=== PATIENT | female | born 1955 | race Caucasian/White ===

== ENCOUNTER 2016-09-26 11:16 | Emergency (ER) | payer SELFPAY ==
[2016-09-26 11:58] LABS: BASOPHIL % 0.5 % (0-2); PLATELET COUNT 237 x10^3mcL (130-400); RED CELL DISTRIBUTION WIDTH 13.8 % (11.5-14.5)
[2016-09-26 12:05] LABS: CALCIUM 8.9 mg/dL (8.5-10.1); CARBON DIOXIDE 31.2 mmol/L (21-32); CREATININE SERUM 1.1 mg/dL (0.6-1.0); POTASSIUM SERUM 4.5 mmol/L (3.5-5.1)
[2016-09-26 13:19] VITALS: BP 183/89
== END 2016-09-26 13:19 | disposition home or self-care (01) ==
LOC: ED 11:16
PROVIDERS: Emergency Medicine
DX: I16.0 Hypertensive urgency (principal); E11.649 Type 2 diabetes mellitus with hypoglycemia without coma; Z79.4 Long term (current) use of insulin; I10 Essential (primary) hypertension
CPT/HCPCS: 36415; 82962

== ENCOUNTER 2018-07-12 09:54 | Inpatient (IN) | payer OTHER ==
[~2018-07-12] VITALS: Ht 162.6 cm; Wt 67.8 kg
[2018-07-12 10:01] VITALS: Ht 162.6 cm; Wt 67.8 kg
--- NOTE | 2018-07-12 10:05 | NUR ---
PATIENT BIB [facility]- ALOC. PATIENT WAS FOUND AT THE FACILITY SHE RESIDES AT WITH LOW BS. UPON TRANSPORT TO HOSPITAL, MEDIC STATES HE BS WAS 96- MEDIC STATES PATIENT HAD INCOMPRENSIBLE SPEECH. UPON ARRIVAL, BS WAS CHECKED AGAIN AND WAS FOUND TO BE AT 145. RECTAL TEMP WAS LOW 96.7. PATIENT STILL ALTERED UPON ARRIVAL BUT RESPONDS TO TOUCH AND WILL STATE NAME AND WHERE SHE IS AT. BREATHING IS EVEN AND UNLABORED, NO OTHER S/S OF DISTRESS NOTED. PLACED ON ALL MONITORS FOR FURTHER EVALUATION.
--- NOTE | 2018-07-12 10:07 | NUR ---
PATIENT BIB [facility] WITH ALOC. BS AT FACILITY WAS LOW AND DURING TRANSPORT BS WAS CHECKED AGAIN AND WAS FOUND TO BE AT 96. PATIENT AWAKENS TO NAME ONLY-AND IS ORIENTED TO PLACE. BREATHING IS EVEN AND UNLABORED. BODY TEMP IS LOW 96.7 RECTALLY, BS 145, AROUSABLE TO VOICE AND TOUCH AND OBEYS COMMANDS WHEN
--- NOTE | 2018-07-12 10:15 | NUR ---
PATIENT TAKEN FOR CT SCAN- WILL MONITOR UPON RETURN.
[2018-07-12 10:16] LABS: BASOPHIL % 0.7 % (0-2); PLATELET COUNT 368 x10^3mcL (130-400); RED CELL DISTRIBUTION WIDTH 16.5 % (11.5-14.5)
[2018-07-12] MEDS ORDERED: NOR10 PO (10:47)
[2018-07-12] MEDS ORDERED: ATORVASTATIN CA40 M1 PO (10:49)
[2018-07-12] MEDS ORDERED: CLOPIDOGREL75 M1 PO (10:49)
[2018-07-12 10:50] LABS: CALCIUM 8.7 mg/dL (8.5-10.1); CARBON DIOXIDE 31.3 mmol/L (21-32); CHLORIDE SERUM 97 mmol/L (98-107); CREATININE SERUM 3.2 mg/dL (0.6-1.0); GFR1 16 mL/min; GLUCOSE SERUM 161 mg/dL (74-106); POTASSIUM SERUM 3.4 mmol/L (3.5-5.1); SODIUM SERUM 135 mmol/L (136-145)
[2018-07-12] MEDS ORDERED: LOSARTAN POTASS50 M1 PO (10:50)
[2018-07-12] MEDS ORDERED: GABAPENTIN100 M2 PO (10:51)
[2018-07-12] MEDS ORDERED: MIRTAZAPINE15 M2 PO (10:51)
[2018-07-12] MEDS ORDERED: ALBUTEROL0.63 MG/3 NEB (10:53)
[2018-07-12] MEDS ORDERED: LASIX40 MG PO (10:55)
[2018-07-12] MEDS ORDERED: LANTI SQ (10:55)
[2018-07-12 10:57] LABS: ALKALINE PHOSPHATASE 208 U/L (46-116); ALT/SGPT 42 U/L (14-59); AST/SGOT 27 U/L (15-37); BILIRUBIN TOTAL 0.3 mg/dL (0.20-1.00)
[2018-07-12] MEDS ORDERED: DULCOLAX10 M1 RC (10:58)
[2018-07-12 11:00] LABS: ALBUMIN 2.9 g/dL (3.4-5.0)
[2018-07-12] MEDS ORDERED: GOOD NEIGH1200 MG/15 PO (11:00)
[2018-07-12] MEDS ORDERED: FLEET ENEMA135 ML RC (11:00)
[2018-07-12] MEDS ORDERED: CLONIDINE HCL0.1 MG PO (11:01)
[2018-07-12] MEDS ORDERED: TYLENOL325 M1 PO (11:02)
--- NOTE | 2018-07-12 11:15 | NUR ---
PATIENT PLACED IN A BEAR HUGGER TO WARM BODY TEMPERATURE UP. PATIENT TOLERATING WELL. BREATHING EVEN AND UNLABORED. NO S/S OF DISTRESS NOTED.
--- NOTE | 2018-07-12 11:42 | NUR ---
PATIENT GOES TO DIALYSIS M/W/F
--- NOTE | 2018-07-12 12:56 | NUR ---
PT RESTING AT BEDSIDE IN NAD. BREATHING E/U, BILATERAL CHEST RISE. BED AT LOWEST POSITION. CALL LIGHT IN REACH. AT BEDSIDE
--- NOTE | 2018-07-12 13:26 | NUR ---
PT RESTING AT BEDSIDE IN NAD. BREATHING E/U, BILATERAL CHEST RISE. BED AT LOWEST POSITION.
--- NOTE | 2018-07-12 13:34 | NUR ---
GAVE REPORT TO NAZIA BARBOZA- SVEN FOR FURTHER CARE OF PATIENT.
--- NOTE | 2018-07-12 13:56 | NUR ---
RECEIVED PATIENT FROM ED VIA [facility] ACCOMPANIED BY ER NURSE AND TRANSPORTER. PT A/0 X2, TRANSFERED PATIENT FROM [facility] TO BED AND MADE COMFORTABLE. APPLIED TELE #16, DENIES CHEST PAIN. EXTERIOR HEART MONITOR NOTED TO LEFT UPPER CHEST AND YADI CATH NOTED TO RIGHT UPPER CHEST, DRESSING CDI. IV TO RAC INTACT AND PATENT FREE FROM REDNESS AND INFILTRATION. PATIENT HAS BEAR HUGGER IN PLACE, RECTAL TEMP 96.5, WILL CONTINUE TO MONITOR. PATIENT ORIENTED TO ROOM. INSTRUCTED TO CALL FOR ASSISTANCE IF NEEDED. SAFETY PRECAUTIONS IN PLACE. WILL MONITOR.
--- NOTE | 2018-07-12 14:31 | NUR ---
RECEIVED PT VIA [facility] FROM E/D, ACCOMPANIED BY RN AND TRANSPORTER. PT A/A/O X 2 (PERSON, PLACE), SLOW SPEECH, SLOW TO RESPOND. ON TELE # 16, NSR, HR 79, DENIES CHEST PAIN OR DISCOMFORT AT THIS TIME, EXTERIOR HEART MONITOR TO LEFT UPPER CHEST. BUL/BLL CLEAR, CHEST RISING EVENLY, R/A, 98%, NO ACUTE RESPIRATORY DISTRESS NOTED. PT REPORTS POOR APPETITE. VOIDS FREELY, HAS ESTEE FISTULA +THRILL/BRUIT, YADI CATH TO RIGHT UPPER CHEST, DRESSING CDI. GENERALIZED WEAKNESS, USES WALKER AT HOME, HAD MULTIPLE FALLS IN THE LAST 3 MONTHS, FALL RISK PROTOCOL IN PLACE. BEAR HUGGER IN PLACE 2/2 HYPOTHERMIA. IV SITE RAC 20G, CDI. ORIENTED PT TO ROOM, BED CONTROLS, CALL LIGHT SYSTEM. SIDE RAILS UP X 2, BED IN LOW POSITION. WILL ENDORSE TO NAZIA BARBOZA.
[2018-07-12 14:55] VITALS: BP 161/66
--- NOTE | 2018-07-12 17:00 | NUR ---
RECTAL TEMP 99.5, COBY POLO PAUSED AT THIS TIME, WILL CONTINUE TO MONITOR RECTAL TEMP. ASSISTED PATIENT UP OUT OF BED TO USE RESTROOM. PATIENT VOIDED AND HAD X1 BM, RECTAL THERMOMETER ACCIDENTLY CAME OUT, PLACED NEW RECTAL THERMOMETER, PATIENT TOLERATED WELL. RECTAL TEMP 99.0, PATIENT RESTING COMFORTABLY IN BED, SAFETY PRECAUTIONS MAINTAINED WILL CONTINUE TO MONITOR.
[2018-07-12 17:29] VITALS: BP 161/67
--- NOTE | 2018-07-12 18:40 | NUR ---
PATIENT RESTING IN BED COMFORTABLY WITH EYES CLOSED, BREATHING EVEN UNLABBORED, NO DISTRESS NOTED. DAUGHTER VERONICA AT BEDSIDE. RECTAL TEMP 98.9, WILL MONITOR AND REMOVE COBY HUGGER IF TEMP REMAINS WNL PER [facility] COORDINATOR. SAFETY PRECAUTIONS MAINTAINED. WILL ENDORSE CARE TO ONCOMING NURSE.
--- NOTE | 2018-07-12 19:52 | NUR ---
PT HAD EXTERNAL HEART MONITOR TO THE LT CHEST,FAMILY WAS WITH THE PATIENT AT THIS TIME,MONITOR WAS OFF SO FAMILY DECIDED TO TAKE IT SINCE ITS OFF AND NOT ON RECORDING ANYTHING RIPE FROM THE CHEST AND TOOK IT HOME WAS PRESENT AT THAT TIME.
--- NOTE | 2018-07-12 19:52 | NUR ---
PT RECIEVED SLEEPING BUT EASILY AROUSABLE ORIENTED TO NAME AND AGE,REG RESP NO SOB R/A SAT 97%,TEMP 99.4 BY COBY ASHERGGMIGUELINA PT FEEL WRAM TO TOUCH AND WILL CONTINUE TO MONITOR.PT C/O NO SENSATION TO THE LT ARM AND WITH WEAKNESS TO THE LT ARM,PT HAS AV SHUNT TO THE LT LOWER ARM WITH GOOD BRUIT AND THRILL,PT HAS YADI CATH TO THE RT CHEST WITH THE SITE INTACT,PT ON TELE MONITOR AND IN NSR NO ECTOPY OR CHEST PAIN AT THIS TIME.KEPT CLEAN AND DRY TO TOUCH AND WILL CONTINUE TO MONITOR.
--- NOTE | 2018-07-12 20:33 | NUR ---
COBY POLO WAS REMOVED TEMP PRIOR TO REMOVAL WAS 99.4,WILL CONTINUE TO MONITOR.
[2018-07-12 20:46] VITALS: BP 144/54
--- NOTE | 2018-07-12 23:05 | NUR ---
CALLED TYLER (HD NURSE) AND RESPONDED INFORMED HER ABOUT HD ORDER FOR 07/13.
--- NOTE | 2018-07-12 23:58 | NUR ---
PT RESTING AT THIS TIME,WILL CONTINUE TO MONITOR.
--- NOTE | 2018-07-13 04:56 | NUR ---
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
[2018-07-13 05:51] VITALS: BP 146/53
--- NOTE | 2018-07-13 06:00 | NUR ---
PT HAD A RESTING NIGHT NO CHANGE AT THIS TIME,WILL CONTINUE TO MONITOR.
[2018-07-13 07:13] LABS: BASOPHIL % 0.7 % (0-2); PLATELET COUNT 342 x10^3mcL (130-400)
[2018-07-13 07:14] LABS: RED CELL DISTRIBUTION WIDTH 16.6 % (11.5-14.5)
[2018-07-13 07:25] VITALS: BP 133/52
[2018-07-13 10:22] LABS: CALCIUM 8.6 mg/dL (8.5-10.1); CARBON DIOXIDE 25.5 mmol/L (21-32); CREATININE SERUM 3.7 mg/dL (0.6-1.0); POTASSIUM SERUM 4.2 mmol/L (3.5-5.1)
--- NOTE | 2018-07-13 10:35 | NUR ---
ALERT AND ORIENTED X 4. BREATHING FREELY ON RA. CROATIAN SPEAKING ALSO SPEAKS AND UNDERSTANDS MALTESE. DENIES NEED FOR PAIN MED.TELE # 16 NSR. HD ORDERED FOR TODAY. GOOD APPETITE. D5NS INFUSING 30 CC HOUR TO RT AC. MINIMAL ASSSIT WITH BRP. CALL LIGHT WITHIN REACH.
--- NOTE | 2018-07-13 11:26 | NUR ---
ASSUMED CARE OF PT. PT AWAKE, ALERT. NO ACUTE DISTRESS OR DISCOMFORT NOTED AT THIS TIME. SAFETY MEASURES IN PLACE.
--- NOTE | 2018-07-13 11:27 | NUR ---
TURNED PT CARE OVER TO ILAN MANDUJANO. PT STABLE SITTING UP WATCHING TV. DIALYSIS NURSE HERE TO START HD.
--- NOTE | 2018-07-13 12:15 | NUR ---
PT ON HEMODIALYSIS AT THIS TIME. PT AWAKE AND ALERT. FAMILY AT BEDSIDE. PT BLOOD SUGAR 298. NORRIS Rios NP AWARE, NEW SLIDING SCALE ORDERED. PT VERBALIZES UNDERSTANDING TO EAT. SAFETY MAINTAINED.
[2018-07-13 12:41] VITALS: BP 148/55
--- NOTE | 2018-07-13 13:30 | NUR ---
PT ON HEMODIALYSIS. ALL NEEDS MET AT THIS TIME
[2018-07-13 16:12] VITALS: BP 148/60
--- NOTE | 2018-07-13 16:30 | NUR ---
DUE MEDS ADMINISTERED. PT BLOOD SUGAR 97 AT THIS TIME. PT AWAKE AND ALERT. NO DISTRESS OR DISCOMFORT NOTED. EDUCATED PT ON IMPORTANCE OF EATING DINNER TO PREVENT HYPOGLYCEMIA. PT VERBALIZED UNDERSTANDING.
--- NOTE | 2018-07-13 18:35 | NUR ---
PT STABLE AT THIS TIME. NO ACUTE DISTRESS OR DISCOMFORT NOTED. ALL NEEDS MET THROUGHOUT SHIFT. WILL CONTINUE TO MONITOR AND ENDORSE CARE TO SALES AND SERVICE CONSULTANT.
--- NOTE | 2018-07-13 19:29 | NUR ---
RECEIVED PT FROM DAY SHIFT RN. PT IS AAOX4, DENIES HEADACHE OR DIZZINESS. TELE #16 SR, DENEIS CHEST PAIN OR PRESSURE. BREATHING EVEN AND UNLABORED WITH NO SIGNS OF DISTRESS NOTED ON RA. IV RAC PATENT, SL. LEFT UPPER ARM FISTULA, YADI CATH RIGHT UPPER CHEST, NO SIGNS OF BLEEDING. PT STATES SHE AMBULATED WITH WALKER. CALL BUTTON WITHIN REACH. SAFETY PRECAUTIONS IN PLACE. WILL CONTINUE TO MONITOR.
[2018-07-13 20:17] VITALS: BP 158/39
[2018-07-13 22:24] VITALS: BP 152/48
--- NOTE | 2018-07-13 23:41 | NUR ---
PT RESTING, BREATHING EVEN AND UNLABORED WITH NO SIGNS OF DISTRESS NOTED. SAFETY PRECAUTIONS IN PLACE. WILL CONTINUE TO MONITOR.
--- NOTE | 2018-07-14 01:26 | NUR ---
PT RESTING, BREATHING EVEN AND UNLABORED WITH NO SIGNS OF RESP DISTRESS. SAFETY PRECAUTIONS IN PLACE. WILL CONTINUE TO MONITOR.
--- NOTE | 2018-07-14 05:47 | NUR ---
PT SLEPT MOST OF THE TIME WITH NO DISTRESS NOTED. BREATHING EVEN AND UNLABORED WITH NO SOB ON RA. IV PATENT, SL. MEDICATED PER EMAR. GENERALIZED WEAKNESS NOTED. PT AMBULATORY WITH MINIMAL ASSIST. SAFETY PRECAUTIONS IN PLACE. WILL CONTIUE TO MONITOR AND ENDORSE CARE TO DAY SHIFT RN.
[2018-07-14 06:04] VITALS: BP 152/48
[2018-07-14 06:15] LABS: CALCIUM 8.1 mg/dL (8.5-10.1); CARBON DIOXIDE 30.1 mmol/L (21-32); CREATININE SERUM 3.1 mg/dL (0.6-1.0); POTASSIUM SERUM 3.9 mmol/L (3.5-5.1)
[2018-07-14 07:08] LABS: BASOPHIL % 0.8 % (0-2); PLATELET COUNT 336 x10^3mcL (130-400)
[2018-07-14 07:12] LABS: RED CELL DISTRIBUTION WIDTH 16.9 % (11.5-14.5)
[2018-07-14 07:19] VITALS: BP 157/62
--- NOTE | 2018-07-14 07:21 | NUR ---
PT RESTING, BREATHING EVEN AND UNLABORED WITH NO SIGNS OF DISTRESS NOTED. SAFETY PRECAUTIONS IN PLACE. ENDORSED CARE TO DAY SHIFT RN, ALL QUESTIONS ADDRESSED.
--- NOTE | 2018-07-14 07:30 | NUR ---
ALERT AND ORIENTED. BREATHING FREELY ON RA. DENIES ANY PAIN. BRP. CALL LIGHT WITHIN REACH. PT WILL BE GOING BACK TO [facility] TODAY. TELE # 16 NSR. INDEPENDENT W ADL'S. VSS.
[2018-07-14 09:45] VITALS: BP 157/62
--- NOTE | 2018-07-14 10:27 | NUR ---
PT WILL BE GOING BACK TO [facility] VIA [email or web address]. SUPPORT MERCHANDISER TIME NOON. RM 37. REPORT GIVEN TO ILAN ABREU. ALL DC INSTRUCTIONS REVIEWED WITH PT AND PTS DTR SIGNED BY PT.
[2018-07-14 10:53] VITALS: BP 173/73
--- NOTE | 2018-07-14 12:16 | NUR ---
RECEIVED T.C. FROM [facility] ([place] TRANSPORT WILL BE ABOUT 30 MINUTES. IV DC'D TELE # 16 RETURNED TO TELE STATION. PT AND FAMILY INFORMED. GAVE PT SANDWICH APPROX [id number].
--- NOTE | 2018-07-14 13:16 | NUR ---
PT LEFT FOR [facility] VIA [facility]. IV DC'D. PACKET GIVEN TO BUNDLE WRAPPER.
== END 2018-07-14 13:10 | DRG 420 ==
LOC: ED 09:54 → DU 11:29
PROVIDERS: Emergency Medicine; ADMIT Family Medicine
PROC: 5A1D70Z Performance of Urinary Filtration, Intermittent, Less than 6 Hours Per Day (ICD-10-PCS; principal; 2018-07-13)
DX: E11.649 Type 2 diabetes mellitus with hypoglycemia without coma (principal); G93.41 Metabolic encephalopathy; E44.0 Moderate protein-calorie malnutrition; E11.22 Type 2 diabetes mellitus with diabetic chronic kidney disease; I12.0 Hypertensive chronic kidney disease with stage 5 chronic kidney disease or end stage renal disease; N18.6 End stage renal disease; G40.909 Epilepsy, unspecified, not intractable, without status epilepticus; R68.0 Hypothermia, not associated with low environmental temperature; Z99.2 Dependence on renal dialysis; Z68.28 Body mass index [BMI] 28.0-28.9, adult; Z79.84 Long term (current) use of oral hypoglycemic drugs; Z86.73 Personal history of transient ischemic attack (TIA), and cerebral infarction without residual deficits; Z88.0 Allergy status to penicillin; Z88.8 Allergy status to other drugs, medicaments and biological substances; Z88.6 Allergy status to analgesic agent; Z91.041 Radiographic dye allergy status
CPT/HCPCS: 82962; 97530-GP; G0480; J3490; J7030; J7042; Q0092

== ENCOUNTER 2018-07-19 09:11 | Inpatient (IN) | payer OTHER ==
[~2018-07-19] VITALS: Ht 162.6 cm; Wt 63.5 kg
[~2018-07-19 09:11] MED LIST: ALBUTEROL0.63 MG/3 NEB; ATORVASTATIN CA40 M1 PO; CLONIDINE HCL0.1 MG PO; CLOPIDOGREL75 M1 PO; DULCOLAX10 M1 RC; FLEET ENEMA135 ML RC; GABAPENTIN100 M2 PO; GOOD NEIGH1200 MG/15 PO; LANTI SQ; LASIX40 MG PO; LOSARTAN POTASS50 M1 PO; MIRTAZAPINE15 M2 PO; NOR10 PO; TYLENOL325 M1 PO
[2018-07-19 09:19] VITALS: Ht 162.6 cm; Wt 63.5 kg
[2018-07-19] MEDS ORDERED: HUMALOG100 UNIT/1 SQ (09:36)
[2018-07-19] MEDS ORDERED: HYDRALAZINE HCL25 MG PO (09:38)
[2018-07-19 10:23] LABS: BASOPHIL % 0.5 % (0-2); PLATELET COUNT 308 x10^3mcL (130-400)
[2018-07-19 10:24] LABS: CALCIUM 8.6 mg/dL (8.5-10.1); CARBON DIOXIDE 30.4 mmol/L (21-32); CREATININE SERUM 3.1 mg/dL (0.6-1.0); POTASSIUM SERUM 3.6 mmol/L (3.5-5.1)
[2018-07-19 10:28] LABS: ALBUMIN 3.3 g/dL (3.4-5.0); BILIRUBIN TOTAL 0.4 mg/dL (0.20-1.00); TOTAL PROTEIN, SERUM 7.6 g/dL (6.4-8.2)
[2018-07-19 10:33] LABS: RED CELL DISTRIBUTION WIDTH 16.6 % (11.5-14.5)
[2018-07-19 10:38] LABS: FREE T4 0.99 ng/dL (0.76-1.46); FREE THYROXINE INDEX 3.4 ug/dL (1.4-4.5); T3 TOTAL 1.59 ng/mL; T4(THYROXINE) 10.5 ug/dL (4.7-13.3)
[2018-07-19 13:06] LABS: microscopic required? YES; urine erythrocyte 1+ (NEGATIVE)
[2018-07-19 13:40] LABS: CHOLESTEROL/HDL RATIO 1.6
[2018-07-19 14:12] VITALS: BP 151/63
[2018-07-19 16:22] VITALS: BP 138/65
[2018-07-19 21:46] VITALS: BP 169/70
[2018-07-20 06:32] VITALS: BP 140/58
[2018-07-20 06:33] LABS: CALCIUM 8.4 mg/dL (8.5-10.1); CARBON DIOXIDE 29.4 mmol/L (21-32); CREATININE SERUM 3.8 mg/dL (0.6-1.0); POTASSIUM SERUM 4.1 mmol/L (3.5-5.1)
[2018-07-20 06:48] LABS: BASOPHIL % 0.1 % (0-2); PLATELET COUNT 301 x10^3mcL (130-400)
[2018-07-20 06:58] LABS: RED CELL DISTRIBUTION WIDTH 16.6 % (11.5-14.5)
[2018-07-20 07:34] VITALS: BP 150/57
[2018-07-20 12:58] VITALS: BP 166/63
[2018-07-20 16:00] VITALS: BP 176/70
[2018-07-20 21:57] VITALS: BP 165/68
[2018-07-21 06:10] VITALS: BP 141/63
[2018-07-21 06:20] LABS: BASOPHIL % 0.7 % (0-2); PLATELET COUNT 289 x10^3mcL (130-400)
[2018-07-21 06:30] LABS: RED CELL DISTRIBUTION WIDTH 16.9 % (11.5-14.5)
[2018-07-21 06:38] LABS: CALCIUM 8.3 mg/dL (8.5-10.1); CARBON DIOXIDE 29.9 mmol/L (21-32); POTASSIUM SERUM 4.4 mmol/L (3.5-5.1)
[2018-07-21 09:00] VITALS: BP 169/66
[2018-07-21 12:30] VITALS: BP 171/71
[2018-07-21 17:55] VITALS: BP 139/61
[2018-07-21 20:31] VITALS: BP 146/60
[2018-07-22 05:26] VITALS: BP 144/63
[2018-07-22 06:41] LABS: BASOPHIL % 1.2 % (0-2); PLATELET COUNT 272 x10^3mcL (130-400)
[2018-07-22 06:54] LABS: CALCIUM 8.6 mg/dL (8.5-10.1); CARBON DIOXIDE 26.9 mmol/L (21-32); POTASSIUM SERUM 4.9 mmol/L (3.5-5.1)
[2018-07-22 06:57] LABS: CREATININE SERUM 4.1 mg/dL (0.6-1.0)
[2018-07-22 07:00] LABS: RED CELL DISTRIBUTION WIDTH 16.3 % (11.5-14.5)
[2018-07-22 09:10] VITALS: BP 153/62
[2018-07-22 12:16] VITALS: BP 147/59
[2018-07-22 17:27] VITALS: BP 143/61
[2018-07-22 21:13] VITALS: BP 141/61
[2018-07-23 05:04] VITALS: BP 150/68
[2018-07-23 05:52] LABS: BASOPHIL % 0.4 % (0-2); PLATELET COUNT 271 x10^3mcL (130-400); RED CELL DISTRIBUTION WIDTH 16.4 % (11.5-14.5)
[2018-07-23 06:35] LABS: CALCIUM 8.3 mg/dL (8.5-10.1); CARBON DIOXIDE 26.7 mmol/L (21-32); MAGNESIUM 1.8 mg/dL (1.8-2.4); PHOSPHOROUS 5.2 mg/dL (2.5-4.9); POTASSIUM SERUM 5.2 mmol/L (3.5-5.1)
[2018-07-23 06:38] LABS: CREATININE SERUM 4.8 mg/dL (0.6-1.0)
[2018-07-23 09:20] VITALS: BP 144/62
[2018-07-23 13:35] VITALS: BP 144/57
[2018-07-23 17:47] VITALS: BP 124/55
[2018-07-23 21:34] VITALS: BP 157/64
[2018-07-24 05:45] VITALS: BP 155/61
[2018-07-24 06:40] LABS: BASOPHIL % 0.5 % (0-2); PLATELET COUNT 268 x10^3mcL (130-400)
[2018-07-24 06:56] LABS: RED CELL DISTRIBUTION WIDTH 16.8 % (11.5-14.5)
[2018-07-24 07:04] LABS: CALCIUM 8.2 mg/dL (8.5-10.1); CARBON DIOXIDE 24.8 mmol/L (21-32); CREATININE SERUM 3.9 mg/dL (0.6-1.0); POTASSIUM SERUM 4.4 mmol/L (3.5-5.1)
[2018-07-24 08:45] VITALS: BP 154/60
[2018-07-24 13:34] VITALS: BP 154/50
== END 2018-07-24 18:56 | DRG 420 ==
LOC: ED 09:11 → DU 12:35 → MU 07-23 09:47
PROVIDERS: Emergency Medicine; ADMIT Internal Medicine
PROC: 5A1D70Z Performance of Urinary Filtration, Intermittent, Less than 6 Hours Per Day (ICD-10-PCS; principal; 2018-07-20)
PROC: 5A1D70Z Performance of Urinary Filtration, Intermittent, Less than 6 Hours Per Day (ICD-10-PCS; 2018-07-23)
DX: E11.649 Type 2 diabetes mellitus with hypoglycemia without coma (principal); N17.0 Acute kidney failure with tubular necrosis; G92 Toxic encephalopathy; I13.2 Hypertensive heart and chronic kidney disease with heart failure and with stage 5 chronic kidney disease, or end stage renal disease; E11.22 Type 2 diabetes mellitus with diabetic chronic kidney disease; N18.6 End stage renal disease; Z99.2 Dependence on renal dialysis; Z88.6 Allergy status to analgesic agent; Z88.3 Allergy status to other anti-infective agents; Z88.0 Allergy status to penicillin; R68.0 Hypothermia, not associated with low environmental temperature; I50.9 Heart failure, unspecified; E78.5 Hyperlipidemia, unspecified; E11.42 Type 2 diabetes mellitus with diabetic polyneuropathy; Z90.710 Acquired absence of both cervix and uterus; Z79.4 Long term (current) use of insulin; Z79.899 Other long term (current) drug therapy; E87.1 Hypo-osmolality and hyponatremia; D63.1 Anemia in chronic kidney disease
CPT/HCPCS: 82962; 83880; 84439; J0885-EC; J1644; J7030; Q0092